=== PATIENT | male | born 1985 | race Caucasian/White ===

== ENCOUNTER → 2023-12-06 16:46 | Outpatient (REF) | payer OTHER, SELFPAY | LOC: RAD 16:46 | PROVIDERS: ATTENDING PHYSICIAN Family Medicine | DX: M25.511 Pain in right shoulder (principal); G89.29 Other chronic pain | CPT/HCPCS: 72050; 73030 ==

== ENCOUNTER → 2024-01-16 15:25 | Outpatient (REF) | payer OTHER, SELFPAY | LOC: PAVMRI 15:25 | PROVIDERS: ATTENDING PHYSICIAN Family Medicine | DX: Z18.10 Retained metal fragments, unspecified (principal); M25.511 Pain in right shoulder | CPT/HCPCS: 70030; 73221 ==